=== PATIENT | female | born 1955 | race Caucasian/White ===

== ENCOUNTER → 2016-12-17 | Outpatient (CLI) | payer OTHER ==
[~2016-12-17] VITALS: Ht 175.3 cm; Wt 107.0 kg
[~2016-12-17] MED LIST: AMIT25TA9 PO; ASPI81TA81 PO; CHLORHEXIDINE GLUCONATE 2 % 1 PACK (2 CLOTHS) TOPICAL PRN; CHOL5000 PO; HYDR-3535 PO; IBUP-232 PO; INSULIN HUMAN REGULAR 1,000 UNITS/10 ML VIAL SQ PRN; LACTATED RINGER'S 1000 ML IV PRN; METOPROLOL TARTRATE 25 MG TAB PO PRN; MULT-142 PO; OMEG12002 PO; POVIDONE IODINE 5% (ANTISEPSIS KIT) 4 APPLICATIONS EACH NARE PRN; PREV30CA11 PO; PROPOFOL 200 MG/20 ML AMP IV ONE; SODIUM CHLORID 0.9% 500 ML IV PRN
[2016-12-17 11:11] VITALS: BP 157/97; PULSE 84; RESP 16; TEMP 97.7; O2SAT 95
[2016-12-17 13:04] VITALS: TEMP 97.6
[2016-12-17 13:25] VITALS: BP 156/70; PULSE 68; RESP 18; O2SAT 98
--- NOTE | 2016-12-17 22:50 | EKG ---
Date Performed: 12/17/2016 Time Performed: 11:13:06 PTAGE: 61 years EKG: Sinus rhythm LOW QRS VOLTAGE IN PRECORDIAL LEADS BORDERLINE ECG PREVIOUS TRACING : 10/16/2014 09.47 Compared to prior tracing no significant change DOCTOR: James Jones Interpretating Date/Time 12/17/2016 22:50:25
--- NOTE | 2016-12-18 15:13 | MR ---
cc: TRACY MORA DATE: 12/17/2016 1955 PROCEDURE Upper endoscopy. INDICATION FOR PROCEDURE Follow-up of Barnes's esophagus. The patient has a history of gastroesophageal reflux disease as well. Photographs and biopsies were taken. PREMEDICATION Administered by anesthesiology. MONITORING Monitoring was accomplished with pulse oximeter, EKG, blood pressure monitor. PROCEDURE NOTE After informed consent was obtained and procedure, risks and benefits were explained including risks of bleeding, sepsis, perforation, risk of anesthesia, the video scope was inserted per the oral route into the esophagus. The esophagus was carefully inspected. Barnes's epithelium appeared obvious from approximately 36 cm distally to about 32 cm proximally, stretching 4 cm. Multiple biopsies were taken working in the distal to proximal fashion. These were all labeled into one specimen bottle. The patient had a modest hiatal hernia. The stomach was entered. There was scattered gastric polyps noted. One was about 1 cm and was quite red, hyperemic, this was successfully snared off with the polypectomy snare and grasped with the Espinosa basket and collected. In the retroflex view the cardia and fundus were unremarkable otherwise, the stomach was also otherwise unremarkable. The pylorus was patent, first, second, third portion of the duodenum were unremarkable as well. The scope was gradually withdrawn. The patient tolerated the procedure well. No immediate complication was noted. IMPRESSION 1. Barnes's esophagus spanning 4 cm. Multiple biopsies were taken from a distal to proximal fashion. 2. Hiatal hernia. 3. Gastric polyp removed by snare technique as outlined above. PLAN Will follow up the histopathology of the biopsies taken today. Continue surveillance as per recommendations. Continue acid suppressive therapy. Follow up the pathology of the polyp removed today. Continue antireflux maneuvers. MD EVI Godoy/DENNYS /1:09 PM /3:05 PM
== END ==
LOC: HEND 10:34
PROVIDERS: ATTEND Internal Medicine Gastroenterology
DX: K22.70 Barrett's esophagus without dysplasia (principal); K21.9 Gastro-esophageal reflux disease without esophagitis; K44.9 Diaphragmatic hernia without obstruction or gangrene; K31.7 Polyp of stomach and duodenum; R94.31 Abnormal electrocardiogram [ECG] [EKG]
CPT/HCPCS: 88305; 93005

== ENCOUNTER 2017-02-01 03:47 | Emergency (ER) | payer OTHER ==
[~2017-02-01 03:47] MED LIST changes: -ASPI81TA81 PO; -CHLORHEXIDINE GLUCONATE 2 % 1 PACK (2 CLOTHS) TOPICAL PRN; -CHOL5000 PO; -INSULIN HUMAN REGULAR 1,000 UNITS/10 ML VIAL SQ PRN; -LACTATED RINGER'S 1000 ML IV PRN; -METOPROLOL TARTRATE 25 MG TAB PO PRN; -MULT-142 PO; -OMEG12002 PO; -POVIDONE IODINE 5% (ANTISEPSIS KIT) 4 APPLICATIONS EACH NARE PRN; -PROPOFOL 200 MG/20 ML AMP IV ONE; -SODIUM CHLORID 0.9% 500 ML IV PRN
[2017-02-01 03:49] VITALS: BP 194/117; PULSE 164; RESP 20; TEMP 97.9; O2SAT 97
[2017-02-01] MEDS ORDERED: ROBA500T PO (04:04)
[2017-02-01 04:13] VITALS: BP 146/60; PULSE 122; PULSE 126; RESP 16; O2SAT 98
[2017-02-01] MEDS ORDERED: ASPIRIN 81 MG CHEW TAB PO ONE (04:15)
[2017-02-01] MEDS ORDERED: DILTIAZEM HCL 25 MG/5 ML VIAL IV ONE ×2 (04:15)
[2017-02-01] MEDS ORDERED: SODIUM CHLORIDE 0.9% FLUSH 10 ML FLUSH IVF PRN (04:15)
[2017-02-01] MEDS ORDERED: traMADol HCL 50 MG TAB PO ONE (04:30)
[2017-02-01] MEDS ORDERED: DILTIAZEM INJ 125 MG in SODIUM CHLORIDE 0.9% INJ 100 ML IV SCH (04:30)
[2017-02-01 04:59] LABS: AUTOMATED NEUTROPHIL # 2.7 TH/MM3 (1.8-7.7); BASOPHIL # 0.1 TH/MM3 (0-0.2); BASOPHIL % 1.8 % (0.0-2.0); EOSINOPHIL # 0.2 TH/MM3 (0-0.4); EOSINOPHIL % 3.1 % (0.0-4.0); HEMATOCRIT 42.2 % (35.0-46.0); HEMO FLAGS DIFF FINAL; LYMPH % 41.2 % (9.0-44.0); LYMPHOCYTE # 2.6 TH/MM3 (1.0-4.8); MEAN CELL VOLUME 101.4 FL (80.0-100.0); MEAN CORPUSCULAR HEMOGLOBIN 35.4 PG (27.0-34.0); MEAN CORPUSCULAR HGB CONC 34.9 % (32.0-36.0); NEUT % 42.9 % (16.0-70.0); PLATELET COUNT 343 TH/MM3 (150-450); RED BLOOD COUNT 4.16 MIL/MM3 (4.00-5.30); RED CELL DISTRIBUTION WIDTH 14.2 % (11.6-17.2); WHITE BLOOD COUNT 6.4 TH/MM3 (4.0-11.0)
[2017-02-01 05:00] VITALS: BP 131/69; PULSE 72; RESP 18; O2SAT 99
[2017-02-01 05:12] LABS: APTT (PATIENT) 24.7 SEC (24.3-30.1); INTERNATIONAL NORMALIZED RATIO 0.9 RATIO
[2017-02-01 05:19] LABS: ALKALINE PHOSPHATASE 119 U/L (45-117); TOTAL BILIRUBIN ADULT 0.3 MG/DL (0.2-1.0)
[2017-02-01 05:23] LABS: ALT (GPT) 31 U/L (10-53); ANION GAP 8 MEQ/L (5-15); AST (GOT) 21 U/L (15-37); BICARBONATE 29.1 MEQ/L (21.0-32.0); BLOOD UREA NITROGEN 11 MG/DL (7-18); CHLORIDE 104 MEQ/L (98-107); GLOMERULAR FILTRATION RATE 74 ML/MIN (>89); SODIUM (NA) 141 MEQ/L (136-145)
[2017-02-01 05:32] VITALS: BP 140/84; PULSE 67; RESP 18; O2SAT 100
--- NOTE | 2017-02-01 06:03 | RADRPT ---
EXAM DATE/TIME: 02/01/2017 04:05 [facility] COMPARISON: CHEST SINGLE AP, October 16, 2014, 9:48. INDICATIONS : Chest pain, elevated heart rate and sudden onset headache MEDICAL HISTORY : None. SURGICAL HISTORY : None. ENCOUNTER: Initial ACUITY: 1 day PAIN SCORE: 8/10 LOCATION: Bilateral chest FINDINGS: A single view of the chest demonstrates minimal bibasilar atelectasis. Heart normal in size. The card iomediastinal contours are unremarkable. Osseous structures are intact. CONCLUSION: Minimal bibasilar atelectasis. Jagdeep Lake MD on February 01, 2017 at 6:01 Board Certified Radiologist. This report was verified electronically.
--- NOTE | 2017-02-01 06:32 | PD ---
HPI Chief Complaint: Cardiac Complaint Time Seen by Provider: 04:00 Travel History International Travel<30 days: No Contact w/Intl Traveler<30days: No Traveled to known affect area: No History of Present Illness HPI Patient is a 61-year-old female who comes in complaining of rapid heart rate. She says she woke up from sleep and felt like her heart was racing. She says this is happened before, usually goes away after a few minutes. Tonight it does not go a. She denies having any chest pain. She says she feels a little lightheaded. She denies nausea or vomiting. She denies any recent travel. She denies any leg swelling or calf tenderness. PFSH Past Medical History Cancer: No Cardiovascular Problems: No Diabetes: No Diminished Hearing: No Endocrine: No Fibromyalgia: Yes Gastrointestinal Disorders: Yes (REFLUX, HIATAL HERNIA) GERD: Yes Genitourinary: No Hepatitis: No Hiatal Hernia: Yes Immune Disorder: No Musculoskeletal: Yes (DDD THROUGHOUT BACK AND NECK, ARTHRITIS) Neurologic: No Psychiatric: No Reproductive: No Respiratory: No Thyroid Disease: No Tetanus Vaccination: Unknown Influenza Vaccination: No Menopausal: Yes : 2 Para: 2 Past Surgical History Abdominal Surgery: Yes (CHOLY) Body Medical Devices: LEFT FOOT HARDWARE Cardiac Surgery: No Section: Yes Cholecystectomy: Yes Ear Surgery: No Endocrine Surgery: No Eye Surgery: No Genitourinary Surgery: No Gynecologic Surgery: Yes (2 C SECTION) Neurologic Surgery: No Oral Surgery: No Pacemaker: No Thoracic Surgery: No Other Surgery: Yes Social History Alcohol Use: Yes (occ) Tobacco Use: No Substance Use: No Allergies-Medications (Allergen,Severity, Reaction): Coded Allergies: No Known Allergies (Unverified , 12/17/16) Reported Meds & Prescriptions Reported Meds & Active Scripts Active Reported Robaxin (Methocarbamol) 500 Mg Tab 1,000 Mg PO QID Prevacid (Lansoprazole) 30 Mg Capdr 30 Mg PO BID Amitriptyline (Amitriptyline HCl) 25 Mg Tab 30 Mg PO HS Review of Systems Except as stated in HPI: all other systems reviewed are Neg General / Constitutional: No: Fever, Chills HENT: Positive: Lightheadedness, No: Headaches Cardiovascular: Positive: Palpitations, No: Chest Pain or Discomfort Gastrointestinal: No: Nausea, Vomiting, Abdominal Pain Musculoskeletal: No: Myalgias, Edema Skin: No Rash, No Change in Pigmentation Neurologic: No: Weakness Physical Exam Narrative GENERAL: Awake and alert, in no acute distress. SKIN: Focused skin assessment warm/dry. HEAD: Atraumatic. Normocephalic. EYES: Pupils equal and round. No scleral icterus. ENT: Mucous membranes pink and moist. NECK: Trachea midline. No JVD. CARDIOVASCULAR: Irregular rhythm, rapid rate. RESPIRATORY: No accessory muscle use. Clear to auscultation. Breath sounds equal bilaterally. GASTROINTESTINAL: Abdomen soft, non-tender, nondistended. Hepatic and splenic margins not palpable. MUSCULOSKELETAL: No obvious deformities. No clubbing. No cyanosis. No edema. No calf Tenderness. NEUROLOGICAL: Awake and alert. No obvious cranial nerve deficits. Motor grossly within normal limits. Normal speech. PSYCHIATRIC: Appropriate mood and affect; insight and judgment normal. Data Data Last Documented VS Vital Signs Date Time Temp Pulse Resp B/P Pulse Ox O2 Delivery O2 Flow Rate FiO2 02/01/17 05:32 67 18 140/84 100 02/01/17 04:02 Room Air 02/01/17 03:49 97.9 Orders Ecg Monitoring (02/01/17 04:06) Blood Pressure (02/01/17 04:06) Iv Access Insert/Monitor (02/01/17 04:06) Oximetry (02/01/17 04:06) Vital Signs (02/01/17 04:06) Sodium Chloride 0.9% Flush (Ns Flush) (02/01/17 04:15) Diltiazem Inj (Cardizem Inj) (02/01/17 04:15) Complete Blood Count With Diff (02/01/17 04:07) Comprehensive Metabolic Panel (02/01/17 04:07) Prothrombin Time / Inr (Pt) (02/01/17 04:07) Act Partial Throm Time (Ptt) (02/01/17 04:07) Troponin I (02/01/17 04:07) Chest, Single Ap (02/01/17 04:07) Aspirin Chew (Aspirin Chew) (02/01/17 04:15) Thyroid Stimulating Hormone (02/01/17 04:07) Diltiazem Inj (Cardizem Inj) (02/01/17 04:15) Vital Signs (Adult) Q15MX4,Q4H (02/01/17 04:25) Bakery Decorator / Telemetry JUAN.Q8H (02/01/17 04:25) Cardiac Rhythm JUAN.Q8H (02/01/17 04:25) Notify Dr: Other (02/01/17 04:25) Diltiazem Inj (Cardizem Inj) (02/01/17 04:30) Tramadol (Ultram) (02/01/17 04:30) Labs Laboratory Tests Test 02/01/17 04:17 White Blood Count 6.4 TH/MM3 Red Blood Count 4.16 MIL/MM3 Hemoglobin 14.7 GM/DL Hematocrit 42.2 % Mean Corpuscular Volume 101.4 FL Mean Corpuscular Hemoglobin 35.4 PG Mean Corpuscular Hemoglobin 34.9 % Concent Red Cell Distribution Width 14.2 % Platelet Count 343 TH/MM3 Mean Platelet Volume 7.9 FL Neutrophils (%) (Auto) 42.9 % Lymphocytes (%) (Auto) 41.2 % Monocytes (%) (Auto) 11.0 % Eosinophils (%) (Auto) 3.1 % Basophils (%) (Auto) 1.8 % Neutrophils # (Auto) 2.7 TH/MM3 Lymphocytes # (Auto) 2.6 TH/MM3 Monocytes # (Auto) 0.7 TH/MM3 Eosinophils # (Auto) 0.2 TH/MM3 Basophils # (Auto) 0.1 TH/MM3 CBC Comment DIFF FINAL Differential Comment Prothrombin Time 10.0 SEC Prothromb Time International 0.9 RATIO Ratio Activated Partial 24.7 SEC Thromboplast Time Sodium Level 141 MEQ/L Potassium Level 4.0 MEQ/L Chloride Level 104 MEQ/L Carbon Dioxide Level 29.1 MEQ/L Anion Gap 8 MEQ/L Blood Urea Nitrogen 11 MG/DL Creatinine 0.79 MG/DL Estimat Glomerular Filtration 74 ML/MIN Rate Random Glucose 97 MG/DL Calcium Level 9.1 MG/DL Total Bilirubin 0.3 MG/DL Aspartate Amino Transf 21 U/L (AST/SGOT) Alanine Aminotransferase 31 U/L (ALT/SGPT) Alkaline Phosphatase 119 U/L Troponin I LESS THAN 0.02 NG/ML Total Protein 7.7 GM/DL Albumin 3.9 GM/DL Thyroid Stimulating Hormone 3.190 uIU/ML 3rd Gen [facility] Medical Decision Making Medical Screen Exam Complete: Yes Emergency Medical Condition: Yes Medical Record Reviewed: Yes Interpretation(s) ECG shows A. fib with RVR at a rate of 168. Differential Diagnosis A. fib with RVR versus electrolytes abnormality versus ACS Narrative Course Patient is a 61-year-old female who comes in complaining of rapid heart rate. Exam shows rapid, irregular heart rate. Patient is in A. fib with RVR. IV established, labs sent. Patient connected to barrel finisher. Given one bolus of Cardizem with some improvement of her rate. Given a second bolus of Cardizem with further improvement of her rate. Patient converted back to sinus rhythm. Repeat ECG showed normal sinus rhythm at 67 with no evidence of ischemia. Labs show no acute abnormalities. Patient is offered admission for cardiology workup. However at this time she declines. She would like to follow up with eyelet machine operator as an outpatient. She is advised to return immediately if her symptoms return. Diagnosis Primary Impression: Atrial fibrillation with RVR Patient Instructions: Atrial Fibrillation (ED), General Instructions Additional Instructions: Follow-up with cardiology as soon as possible. Avoid stimulants. Return to the ED at any time for any worsening symptoms. Disposition: 01 DISCHARGE HOME Condition: Stable Dominique Hughes MD Feb 01, 2017 06:32
--- NOTE | 2017-02-02 09:59 | EKG ---
Date Performed: 02/01/2017 Time Performed: 05:02:40 PTAGE: 61 years EKG: Sinus rhythm LOW QRS VOLTAGE IN PRECORDIAL LEADS BORDERLINE ECG Compared to the PREVIOUS TRACING atrial fibrillation has resolved, tracing has normalized PREVIOUS JESSICA N12/17/2016 11.13 DOCTOR: Jeremías Laureano Interpretating Date/Time 02/02/2017 09:59:46
--- NOTE | 2017-02-02 09:59 | EKG ---
Date Performed: 02/01/2017 Time Performed: 04:01:09 PTAGE: 61 years EKG: ATRIAL FIBRILLATION WITH RAPID VENTRICULAR RESPONSE WITH ABERRANT CONDUCTION OR VENTRICULAR PREMATURE COMPLEXES LOW QRS VOLTAGE IN PRECORDIAL LEADS MODERATE ST DEPRESSION ABNORMAL ECG Atrial f ibrillation is new since prior tracing Clinical correlation is recommended PREVIOUS TRACING : 12/17/16 DOCTOR: Jeremías Laureano Interpretating Date/Time 02/02/2017 09:59:25
== END 2017-02-01 06:40 | disposition home or self-care (01) ==
LOC: NEPE 03:47
DX: I48.91 Unspecified atrial fibrillation (principal)
CPT/HCPCS: 71010; 80053; 84443; 84484; 85025; 85610; 85730; 93005; 96374; 96376